=== PATIENT | male | born 1960 ===

== ENCOUNTER 2016-08-12 09:56 | Emergency (ER) | payer OTHER, SELFPAY ==
[2016-08-12 09:56] VITALS: BMI 34.5
[2016-08-12] MEDS ORDERED: Sodium Chloride 0.9% 1,000 ML IV SCH (10:30)
--- NOTE | 2016-08-12 10:38 | ED PDOC ---
HPI: Back Time Seen by Provider: 08/12/16 10:10 Chief Complaint (Nursing): Back Pain Chief Complaint (Provider): Right flank pain History Per: Patient History/Exam Limitations: no limitations Onset/Duration Of Symptoms: Hrs Current Symptoms Are (Timing): Still Present Quality Of Discomfort: "Pain" Severity: Moderate Previous Symptoms: None Additional History Per: Patient Additional Complaint(s): The pt is a 55yo male, presents to the ED for evaluation of right sided flank pain present since last night, radiating to his right groin. Reports the pain is associated with multiple episodes of frequency and nausea. Pt denies chest pain, shortness of breath, dysuria or penile discharge. Additionally denies numbness, weakness, bladder or bowel incontinence. Pt offers no additional medical complaints. Past Medical History Reviewed: Historical Data, Nursing Documentation, Vital Signs Vital Signs: Last Vital Signs Temp Pulse Resp BP 151/93 H 08/12/16 10:03 Pulse Ox 98 08/12/16 10:03 - Medical History PMH: HTN, Hypercholesterolemia Denies: HIV, Chronic Kidney Disease - Surgical History Surgical History: No Surg Hx - Family History Family History: States: Unknown Family Hx - Social History Current smoker - smoking cessation education provided: No Alcohol: None Drugs: Denies - Home Medications Home Medications: Ambulatory Orders Medication Instructions Recorded Aspirin 325 mg PO DAILY #30 tab 10/09/15 Atorvastatin [Lipitor] 40 mg PO DAILY #30 tab 10/09/15 Clopidogrel [Plavix] 75 mg PO DAILY #30 tab 10/09/15 Lisinopril [Zestril] 10 mg PO DAILY #30 tab 10/09/15 Metoprolol Tartrate [Lopressor] 50 mg PO Q12 11/22/15 Ciprofloxacin HCl [Cipro] 500 mg PO BID #10 tablet 08/12/16 Tamsulosin [Flomax] 0.4 mg PO DAILY #20 cap 08/12/16 oxyCODONE/Acetaminophen [Percocet 1 ea PO Q6 PRN #10 tab 08/12/16 5/325 mg Tab] - Allergies Allergies/Adverse Reactions: Allergies Allergy/AdvReac Type Severity Reaction Status Date / Time No Known Allergies Allergy Verified 10/06/15 03:06 Review of Systems ROS Statement: Except As Marked, All Systems Reviewed And Found Negative Constitutional: Negative for: Fever, Chills, Malaise, Weight loss Cardiovascular: Negative for: Chest Pain, Paroxysmal Noc. Dyspnea, Edema Respiratory: Negative for: Cough, Shortness of Breath, SOB with Exertion Gastrointestinal: Positive for: Nausea. Negative for: Vomiting, Abdominal Pain , Diarrhea Genitourinary Male: Positive for: Frequency. Negative for: Dysuria, Incontinence, Penile Discharge Musculoskeletal: Positive for: Back Pain (right flank pain radiating to groin) Neurological: Negative for: Weakness, Numbness Psych: Negative for: Anxiety, Depression Physical Exam - Reviewed Nursing Documentation Reviewed: Yes Vital Signs Reviewed: Yes - Physical Exam Appears: Positive for: Well, Non-toxic, No Acute Distress Head Exam: Positive for: ATRAUMATIC, NORMAL INSPECTION, NORMOCEPHALIC Skin: Positive for: Normal Color, Warm, DRY Eye Exam: Positive for: Normal appearance Neck: Positive for: Normal, Supple Cardiovascular/Chest: Positive for: Regular Rate, Rhythm Respiratory: Positive for: Normal Breath Sounds. Negative for: Respiratory Distress Pulses-Radial (L): 2+ Pulses-Radial (R): 2+ Back: Positive for: R CVA Tenderness. Negative for: Vertebral Tenderness Extremity: Positive for: Normal ROM, Other (pt ambulating normally in ED). Negative for: Deformity Neurologic/Psych: Positive for: Alert, Oriented - Laboratory Results Result Diagrams: 08/12/16 10:35 08/12/16 10:35 - ECG O2 Sat by Pulse Oximetry: 98 (RA) Pulse Ox Interpretation: Normal Medical Decision Making Medical Decision Making: Time: Impression: Renal colic vs. musculoskeletal back pain Plan: -- CT Abdomen from 2016 reviewed, no eivdence of AAA or dissection noted. Renal stones on right side present. -- CT AP -- CMP -- CBC -- Lipase -- Toradol 30 mg IVP -- Morphine 4 mg IVP -- Zofran 4 mg IVP -- IV Fluids -- Reassess Scribe Attestation: Documented by Ariana Mcclain acting as a scribe for Janeth Rivas MD. Provider Attestation: All medical record entries made by the Scribe were at my direction and personally dictated by me. I have reviewed the chart and agree that the record accurately reflects my personal performance of the history, physical exam, medical decision making, and the department course for this patient. I have also personally directed, reviewed, and agree with the discharge instructions and disposition. 11:47AM Patient is afebrile. WBC is mildly elevated with shift. Bun/creatinine WNL. UA shows rare bacteria and hematuria but negative for leukocytes and nitrates. Ucx sent. 12:35 CT shows 5 x 3 mm proximal right ureteral calculus (series 3, image 94) with proximal hydroureteronephrosis. Bibasilar atelectasis. Small hiatal hernia/distal esophageal wall thickening. Fat containing umbilical hernia measures approximately 13 mm in transverse dimension. Small fat containing bilateral inguinal hernias. Called Dr. Gross, urology archivist economic history, and spoke to him about patient. He recommends dc home if tolerating po and pain controlled, with cipro x 4 days and flomax. Will follow patient in his office 2:20PM Dose of rocephin given. Patient tolerating po and pain controlled. Given short course of percocet for breakthrough pain and understands the risk of narcotics for treatment for this acute condition. Risks and alternatives were provided. Disposition - Clinical Impression Clinical Impression: Renal colic, Hydroureteronephrosis - Disposition Referrals: Reed Winston MD [Medical Doctor] - Disposition: Routine/Home Disposition Time: 12:39 Condition: FAIR Additional Instructions: Take cipro and flomax as prescribed. Percocet for severe pain. Follow-up with urology within 2 days. Return to ED immediately with any worsening pain, vomiting, fever, or any worsening symptoms Prescriptions: Ciprofloxacin HCl [Cipro] 500 mg PO BID #10 tablet oxyCODONE/Acetaminophen [Percocet 5/325 mg Tab] 1 ea PO Q6 PRN #10 tab PRN Reason: Pain, Moderate (4-7) Tamsulosin [Flomax] 0.4 mg PO DAILY #20 cap Instructions: Kidney Stones (ED), Renal Colic (ED), How to Strain Your Urine ( ED) Print Language: BENGALI
[2016-08-12 10:47] LABS: BASO # 0.1 K/uL (0.0-0.2); BASO % 0.5 % (0.0-2.0); EOS # 0.1 K/uL (0.0-0.7); EOS % 0.5 % (0.0-4.0); HEMOGLOBIN 14.9 g/dL (12.0-18.0); LYMPH # 1.8 K/uL (1.0-4.3); LYMPH % 14.1 % (20.0-40.0); MEAN CORPUSCULAR HEMOGLOBIN 30.5 pg (27.0-31.0); MEAN CORPUSCULAR HGB CONC 32.8 g/dL (33.0-37.0); MEAN PLATELET VOLUME 9.1 fl (7.2-11.7); MONO # 0.5 K/uL (0.0-0.8); MONO % 4.1 % (0.0-10.0); NEUT # 10.2 K/uL (1.8-7.0); NEUT % 80.8 % (50.0-75.0); RBC 4.87 Mil/uL (4.40-5.90); RED CELL DISTRIBUTION WIDTH 13.1 % (11.5-14.5); WHITE BLOOD COUNT 12.7 K/uL (4.8-10.8)
[2016-08-12 10:57] LABS: ALB/GLOB RATIO 1.6 (1.0-2.1); ALBUMIN 4.5 g/dL (3.5-5.0); ALT/SGPT 77 U/L (21-72); AST/SGOT 37 U/L (17-59); BLOOD UREA NITROGEN 20 mg/dl (9-20); CALCIUM 9.3 mg/dL (8.4-10.2); GFR AFRICAN-AMERICAN > 60; GFR NON-AFRICAN AMERICAN > 60; LIPASE 24 U/L (23-300)
[2016-08-12 11:03] LABS: SQUAMOUS EPITHIAL < 1 /hpf (0-5); URINE BACTERIA RARE (<OCC); URINE BILIRUBIN NEGATIVE (NEGATIVE); URINE BLOOD SMALL (NEGATIVE); URINE CLARITY CLEAR (Clear); URINE COLOR YELLOW (YELLOW); URINE GLUCOSE (UA) NEG (Normal); URINE LEUKOCYTE ESTERASE NEG Leu/uL (Negative); URINE NITRATE NEGATIVE (NEGATIVE); URINE PROTEIN 30 mg/dL (NEGATIVE); URINE UROBILINOGEN 0.2-1.0 mg/dL (0.2-1.0)
--- NOTE | 2016-08-12 12:32 | CT ---
PROCEDURE: CT Abdomen and Pelvis without Oral or IV contrast. HISTORY: R flank pain COMPARISON: Dissection CT performed 10/06/15 TECHNIQUE: Contiguous axial images of the abdomen and pelvis. No oral or IV contrast administered. Coronal and Sagittal reformats generated and reviewed. Radiation dose: Total exam DLP = 1107. 60 mGy-cm. This CT exam was performed using one or more of the following dose reduction techniques: Automated exposure control, adjustment of the mA and/or kV according to patient size, and/or use of iterative reconstruction technique. FINDINGS: There is limited evaluation of the solid organs without the administration of IV contrast. LOWER THORAX: Bibasilar atelectasis. No visible pleural effusion or pneumothorax. Small hiatal hernia/distal esophageal wall thickening. LIVER: Unremarkable unenhanced appearance. GALLBLADDER AND BILE DUCTS: Unremarkable unenhanced appearance. PANCREAS: Unremarkable unenhanced appearance. SPLEEN: Unremarkable unenhanced appearance. ADRENALS: Unremarkable unenhanced appearance. KIDNEYS AND URETERS: 5 x 3 mm proximal right ureteral calculus (series 3, image 94) with proximal hydroureteronephrosis. The left kidney appears unremarkable without hydronephrosis or obstructing calculus evident. BLADDER: The urinary bladder appears unremarkable. REPRODUCTIVE: Unremarkable. APPENDIX: The appendix appears within normal limits of caliber. No secondary signs of acute appendicitis. BOWEL: The stomach is nondistended. Lack of oral contrast limits evaluation for bowel pathology. The bowel loops appear within normal limits of caliber without evidence of intestinal obstruction. PERITONEUM: No significant free fluid. No definite free air. LYMPH NODES: No bulky lymphadenopathy identified. VASCULATURE: Atherosclerotic calcifications. No aortic aneurysm. BONES: Degenerative changes of the spine. Vacuum disc phenomenon at L5-S1. OTHER FINDINGS: Fat containing umbilical hernia measures approximately 13 mm in transverse dimension. Small fat containing bilateral inguinal hernias. IMPRESSION: 5 x 3 mm proximal right ureteral calculus (series 3, image 94) with proximal hydroureteronephrosis. Bibasilar atelectasis. Small hiatal hernia/distal esophageal wall thickening. Fat containing umbilical hernia measures approximately 13 mm in transverse dimension. Small fat containing bilateral inguinal hernias.
[2016-08-12] MEDS ORDERED: cefTRIAXone (Rocephin) 1 gm Inj ONE (12:46)
[2016-08-12] MEDS ORDERED: Oxycodone/Acetaminophen 5/325 mg Tab PO STA (13:18)
[2016-08-12] MEDS ORDERED: Oxycodone/Acetaminophen 5/325 mg Tab ONE (13:24)
[2016-08-12 14:33] VITALS: BP 123/76; PULSE 78; RESP 18; TEMP 98.1; O2SAT 99
== END 2016-08-12 14:33 | disposition home or self-care (01) ==
LOC: H.ER 09:56
DX: N13.2 Hydronephrosis with renal and ureteral calculous obstruction (principal); R11.0 Nausea; E78.00 Pure hypercholesterolemia, unspecified; I10 Essential (primary) hypertension; Z79.82 Long term (current) use of aspirin

== ENCOUNTER 2016-08-13 22:50 | Emergency (ER) | payer SELFPAY ==
[2016-08-13 22:51] VITALS: BMI 34.5
[2016-08-13 23:04] VITALS: BP 144/70; PULSE 94; RESP 18; TEMP 100.6; O2SAT 100
[2016-08-13] MEDS ORDERED: Sodium Chloride 0.9% 1,000 ML IV STA (23:10)
--- NOTE | 2016-08-13 23:23 | ED PDOC ---
HPI: Male Pain Time Seen by Provider: 08/13/16 23:08 Chief Complaint (Nursing): Male Genitourinary History Per: Patient (returns to the ER because of persistent right flank pain since yesterday when his ER workup revealed a 5x3 mm right sided ureteral stone with hydronephrosis. Patient was discharged with NSAIDs, Flomax and antibiotics. He returns because he has persistent pain that was not relieved by the meds given on discharge.) History/Exam Limitations: no limitations Past Medical History Reviewed: Historical Data, Nursing Documentation, Vital Signs Vital Signs: Last Vital Signs Temp 100.6 F H 08/13/16 23:01 Pulse 94 H 08/13/16 23:01 Resp 18 08/13/16 23:01 BP 144/70 08/13/16 23:01 Pulse Ox 100 08/13/16 23:01 - Medical History PMH: HTN, Hypercholesterolemia Denies: HIV, Chronic Kidney Disease - Family History Family History: States: Unknown Family Hx - Home Medications Home Medications: Ambulatory Orders Medication Instructions Recorded Aspirin 325 mg PO DAILY #30 tab 10/09/15 Atorvastatin [Lipitor] 40 mg PO DAILY #30 tab 10/09/15 Clopidogrel [Plavix] 75 mg PO DAILY #30 tab 10/09/15 Lisinopril [Zestril] 10 mg PO DAILY #30 tab 10/09/15 Metoprolol Tartrate [Lopressor] 50 mg PO Q12 11/22/15 Ciprofloxacin HCl [Cipro] 500 mg PO BID #10 tablet 08/12/16 Tamsulosin [Flomax] 0.4 mg PO DAILY #20 cap 08/12/16 oxyCODONE/Acetaminophen [Percocet 1 ea PO Q6 PRN #10 tab 08/12/16 5/325 mg Tab] - Allergies Allergies/Adverse Reactions: Allergies Allergy/AdvReac Type Severity Reaction Status Date / Time No Known Allergies Allergy Verified 10/06/15 03:06 Review of Systems ROS Statement: Except As Marked, All Systems Reviewed And Found Negative Constitutional: Negative for: Chills Gastrointestinal: Positive for: Abdominal Pain (right flank). Negative for: Nausea, Vomiting Physical Exam - Reviewed Nursing Documentation Reviewed: Yes Vital Signs Reviewed: Yes - Physical Exam Appears: Positive for: Well, Non-toxic, No Acute Distress, Uncomfortable Head Exam: Positive for: ATRAUMATIC, NORMAL INSPECTION, NORMOCEPHALIC Skin: Positive for: Normal Color, Warm, DRY Eye Exam: Positive for: Normal appearance Neck: Positive for: Normal Cardiovascular/Chest: Positive for: Regular Rate, Rhythm Respiratory: Positive for: CNT, Normal Breath Sounds Gastrointestinal/Abdominal: Positive for: Normal Exam, Bowel Sounds, Soft Back: Positive for: Normal Inspection, R CVA Tenderness Extremity: Positive for: Normal ROM Neurologic/Psych: Positive for: Alert, Oriented - ECG O2 Sat by Pulse Oximetry: 100 Disposition - Clinical Impression Clinical Impression: Renal colic - Patient ED Disposition Is Patient to be Admitted: Transfer of Care - Disposition Disposition: Transfer of Care Disposition Time: 23:24 Condition: GUARDED Patient Signed Over To: Cyrus Crowell Present On Arrival: None
[2016-08-13 23:44] LABS: BASO # 0.1 K/uL (0.0-0.2); BASO % 0.8 % (0.0-2.0); EOS # 0.1 K/uL (0.0-0.7); EOS % 0.6 % (0.0-4.0); HEMOGLOBIN 13.4 g/dL (12.0-18.0); LYMPH # 1.8 K/uL (1.0-4.3); LYMPH % 16.8 % (20.0-40.0); MEAN CELL VOLUME 92.9 fl (80.0-94.0); MEAN CORPUSCULAR HEMOGLOBIN 30.9 pg (27.0-31.0); MEAN CORPUSCULAR HGB CONC 33.3 g/dL (33.0-37.0); MEAN PLATELET VOLUME 8.6 fl (7.2-11.7); MONO % 9.1 % (0.0-10.0); NEUT # 7.7 K/uL (1.8-7.0); NEUT % 72.7 % (50.0-75.0); RBC 4.34 Mil/uL (4.40-5.90); WHITE BLOOD COUNT 10.6 K/uL (4.8-10.8)
--- NOTE | 2016-08-13 23:52 | ED PDOC ---
- Laboratory Results Result Diagrams: 08/13/16 23:40 08/13/16 23:40 - ECG O2 Sat by Pulse Oximetry: 100 Medical Decision Making Medical Decision Making: Patient s/o from Dr. Kramer at 0000 pending labs and reeval. 0209: Labs reviewed, no clinically significant abnormalities. Patient feels better and is stable for d/c. Dx: renal colic stable Scribe Attestation: Documented by Maral Mireles acting as a scribe for Cyrus Crowell MD. Provider Scribe Attestation: All medical record entries made by the Scribe were at my direction and personally dictated by me. I have reviewed the chart and agree that the record accurately reflects my personal performance of the history, physical exam, medical decision making, and the department course for this patient. I have also personally directed, reviewed, and agree with the discharge instructions and disposition. Disposition - Clinical Impression Clinical Impression: Renal colic - POA Present On Arrival: None - Disposition Referrals: Reed Winston MD [Medical Doctor] - Stacey Garcia MD [Primary Care Provider] - Disposition: Routine/Home Disposition Time: 02:09 Condition: STABLE Additional Instructions: Please continue your current medications as prescribed Instructions: Ureteral Stones (ED) Print Language: SLOVENIAN
[2016-08-13 23:55] LABS: CALCIUM 8.8 mg/dL (8.4-10.2)
== END 2016-08-14 02:30 | disposition home or self-care (01) ==
LOC: H.ER 22:50
DX: N23 Unspecified renal colic (principal); I10 Essential (primary) hypertension

== ENCOUNTER 2017-01-11 21:42 | Emergency (ER) | payer SELFPAY ==
[2017-01-11 21:43] VITALS: BMI 34.5
[2017-01-11 21:47] VITALS: RESP 16; O2SAT 98
--- NOTE | 2017-01-11 22:16 | ED PDOC ---
HPI: Hypertension/Hypotension Time Seen by Provider: 01/11/17 21:54 Chief Complaint (Nursing): High Blood Pressure History Per: Patient History/Exam Limitations: no limitations Additional Complaint(s): 56 yo male patient with PMH of HTN, NE, and Hyperlipidemia comes to ED c/o headache and high blood pressure, he measure his bp in a local pharmacy showing elevated BP. Patient states having being off of his BP medicines for 2 days, states has refill on pharmacy but for work reasons was unable to pickup them. Denies chest pain, palpitations, sob, edema, nausea, vomiting, no recent vomiting, blurred vision. PMD: Dr Garcia Cardiology: Dr Osuna Past Medical History Vital Signs: Last Vital Signs Temp 98.0 F 01/11/17 21:46 Pulse 100 H 01/11/17 21:46 Resp 16 01/11/17 21:46 BP 178/96 H 01/11/17 21:48 Pulse Ox 98 01/11/17 21:46 - Medical History PMH: HTN, Hypercholesterolemia Denies: HIV, Chronic Kidney Disease - Family History Family History: States: Unknown Family Hx - Home Medications Home Medications: Ambulatory Orders Medication Instructions Recorded Aspirin 325 mg PO DAILY #30 tab 10/09/15 Atorvastatin [Lipitor] 40 mg PO DAILY #30 tab 10/09/15 Clopidogrel [Plavix] 75 mg PO DAILY #30 tab 10/09/15 Lisinopril [Zestril] 10 mg PO DAILY #30 tab 10/09/15 Metoprolol Tartrate [Lopressor] 50 mg PO Q12 11/22/15 Ciprofloxacin HCl [Cipro] 500 mg PO BID #10 tablet 08/12/16 Tamsulosin [Flomax] 0.4 mg PO DAILY #20 cap 08/12/16 oxyCODONE/Acetaminophen [Percocet 1 ea PO Q6 PRN #10 tab 08/12/16 5/325 mg Tab] - Allergies Allergies/Adverse Reactions: Allergies Allergy/AdvReac Type Severity Reaction Status Date / Time No Known Allergies Allergy Verified 01/11/17 21:45 Review of Systems ROS Statement: Except As Marked, All Systems Reviewed And Found Negative Physical Exam - Reviewed Nursing Documentation Reviewed: Yes Vital Signs Reviewed: Yes - Physical Exam Appears: Positive for: No Acute Distress Head Exam: Positive for: NORMAL INSPECTION Skin: Positive for: Normal Color, Warm, Dry Eye Exam: Positive for: EOMI, PERRL. Negative for: Nystagmus Neck: Positive for: Supple Cardiovascular/Chest: Positive for: Regular Rate, Rhythm, Tachycardia. Negative for: Murmur Respiratory: Positive for: Normal Breath Sounds. Negative for: Rales, Rhonchi, Wheezing Pulses-Dorsalis Pedis (L): 2+ Pulses-Dorsalis Pedis (R): 2+ Gastrointestinal/Abdominal: Positive for: Bowel Sounds, Soft. Negative for: Tenderness, Distended Extremity: Negative for: Pedal Edema, Calf Tenderness Neurologic/Psych: Positive for: Alert, paid search manager II-XII, Oriented - ECG O2 Sat by Pulse Oximetry: 98 - Progress ED Course And Treament: Impression: Hypertensive urgency Plan: lisinopril 10 mg PO once metoprolol 50 mg PO once EKG Reevaluation. Reevaluation 2253 BP 165/74 Patient still having headache, less than arrival. Discharged home. Disposition - Clinical Impression Clinical Impression: HTN (hypertension) - Patient ED Disposition Is Patient to be Admitted: No - Disposition Referrals: Stacey Garcia MD [Resident] - Disposition: Routine/Home Disposition Time: 23:19 Condition: GOOD Instructions: Hypertension (DC) Forms: [facility] (Latvian)
[2017-01-11 23:04] VITALS: BP 149/104; PULSE 82; TEMP 98.9
== END 2017-01-11 23:22 | disposition home or self-care (01) ==
LOC: H.ER 21:42
DX: I10 Essential (primary) hypertension (principal); E78.00 Pure hypercholesterolemia, unspecified; Z79.82 Long term (current) use of aspirin

== ENCOUNTER 2017-08-04 13:50 | Emergency (ER) | payer SELFPAY ==
[2017-08-04 13:50] VITALS: BMI 34.5
[2017-08-04 14:13] VITALS: TEMP 98.3
[2017-08-04] MEDS ORDERED: Sodium Chloride 0.9% 1,000 ML IV STA (14:58)
--- NOTE | 2017-08-04 15:07 | ED PDOC ---
HPI: Abdomen Time Seen by Provider: 08/04/17 14:25 Chief Complaint (Nursing): Male Genitourinary Chief Complaint (Provider): Right flank pain History Per: Patient History/Exam Limitations: no limitations Onset/Duration Of Symptoms: Days Current Symptoms Are (Timing): Still Present Quality Of Discomfort: "Pain" Associated Symptoms: denies: Fever, Vomiting Additional Complaint(s): 56 year old male with a history of kidney stones presents to the ED for evaluation of right flank pain onset this morning. Reports the pain radiates from his right flank to his right groin. Also states of CVA pain. Denies vomiting of fever. PMD: Stacey Garcia Past Medical History Reviewed: Historical Data, Nursing Documentation, Vital Signs Vital Signs: Last Vital Signs Temp 98.3 F 08/04/17 14:08 Pulse 69 08/04/17 14:08 Resp 16 08/04/17 14:08 BP 124/77 08/04/17 14:08 Pulse Ox 99 08/04/17 18:04 - Medical History PMH: HTN, Hypercholesterolemia Denies: HIV, Chronic Kidney Disease Other PMH: coronary artery disease - Family History Family History: States: Unknown Family Hx - Home Medications Home Medications: Ambulatory Orders Medication Instructions Recorded Aspirin 325 mg PO DAILY #30 tab 10/09/15 Atorvastatin [Lipitor] 40 mg PO DAILY #30 tab 10/09/15 Clopidogrel [Plavix] 75 mg PO DAILY #30 tab 10/09/15 Lisinopril [Zestril] 10 mg PO DAILY #30 tab 10/09/15 Metoprolol Tartrate [Lopressor] 50 mg PO Q12 11/22/15 oxyCODONE/Acetaminophen [Percocet 1 ea PO Q6 PRN #10 tab 08/12/16 5/325 mg Tab] Ciprofloxacin HCl [Cipro] 500 mg PO BID #10 tablet 08/04/17 Tamsulosin [Flomax] 0.4 mg PO DAILY #20 cap 08/04/17 - Allergies Allergies/Adverse Reactions: Allergies Allergy/AdvReac Type Severity Reaction Status Date / Time No Known Allergies Allergy Verified 08/04/17 14:08 Review of Systems ROS Statement: Except As Marked, All Systems Reviewed And Found Negative Constitutional: Negative for: Fever Gastrointestinal: Positive for: Abdominal Pain (right-side). Negative for: Vomiting Musculoskeletal: Positive for: Back Pain (right-side) Physical Exam - Reviewed Nursing Documentation Reviewed: Yes Vital Signs Reviewed: Yes - Physical Exam Appears: Positive for: Well, Non-toxic, No Acute Distress Head Exam: Positive for: ATRAUMATIC, NORMAL INSPECTION, NORMOCEPHALIC Skin: Positive for: Normal Color, Warm, Dry Eye Exam: Positive for: EOMI, Normal appearance, PERRL ENT: Positive for: Normal ENT Inspection Neck: Positive for: Normal, Painless ROM, Supple. Negative for: Decreased ROM Cardiovascular/Chest: Positive for: Regular Rate, Rhythm. Negative for: Murmur Respiratory: Positive for: Normal Breath Sounds. Negative for: Decreased Breath Sounds, Accessory Muscle Use, Respiratory Distress Gastrointestinal/Abdominal: Positive for: Tenderness (right lower quadrant). Negative for: Guarding, Rebound Back: Positive for: Normal Inspection. Negative for: L CVA Tenderness, R CVA Tenderness Extremity: Positive for: Normal ROM. Negative for: Tenderness, Pedal Edema, Deformity Neurologic/Psych: Positive for: Alert, Oriented (x3). Negative for: Motor/ Sensory Deficits - Laboratory Results Result Diagrams: 08/04/17 15:10 08/04/17 15:10 - ECG O2 Sat by Pulse Oximetry: 99 (RA) Pulse Ox Interpretation: Normal - Progress Re-evaluation Time: 17:50 Condition: Re-examined, Improved Medical Decision Making Medical Decision Making: Time: 1457 Initial Impression: right flank pain Differential Diagnosis includes but is not limited to: renal colic, nephritis, UTI Initial Plan: --ABD & Pelvis w/o PO or IV CT --BMP --ED Urine Dipstick --CBC w/ Differential --Normal Saline 1000mls/hr --Toradol 30mg --Urinalysis --Reevaluation Time: 1635 PROCEDURE: CT Abdomen and Pelvis without intravenous contrast HISTORY: right flank pain. History of nephrolithiasis COMPARISON: 04/14/2016 CT abdomen and pelvis. Summary of findings on the comparison examination: 5 x 3 mm proximal right ureteral calculus with proximal hydroureteronephrosis TECHNIQUE: Unenhanced study. Neither oral nor intravenous contrast administered. Radiation dose: Total exam DLP = 998.91 mGy-cm. This CT exam was performed using one or more of the following dose reduction techniques: Automated exposure control, adjustment of the mA and/or kV according to patient size, and/or use of iterative reconstruction technique. FINDINGS: LOWER THORAX: Chronic findings at the lung bases and right middle lobe. These are unchanged LIVER: Unremarkable. No gross lesion or ductal dilatation. GALLBLADDER AND BILE DUCTS: Unremarkable. PANCREAS: Unremarkable. No gross lesion or ductal dilatation. SPLEEN: Unremarkable. ADRENALS: Unremarkable. No mass. KIDNEYS AND URETERS: Tiny upper tract calculi. Mild fullness right collecting system and right ureter. This appears be secondary to a bladder calculus just to the left of the midline measuring 6 x 7 mm. VASCULATURE: Unremarkable. No aortic aneurysm. BOWEL: Unremarkable. No obstruction. No gross mural thickening. APPENDIX: Unremarkable. Normal appendix. PERITONEUM: Unremarkable. No free fluid. No free air. LYMPH NODES: Unremarkable. No enlarged lymph nodes. BLADDER: Subcentimeter bladder calculus, otherwise unremarkable. No bladder wall abnormalities detected. REPRODUCTIVE: Unremarkable. BONES: No acute fracture. OTHER FINDINGS: None. IMPRESSION: Mild right hydronephrosis, hydroureter. 6 x 7 mm calculus in the urinary bladder. Scribe Attestation: Documented by Sean Chang, acting as a scribe for Duc Mclain MD Provider Scribe Attestation: All medical record entries made by the Scribe were at my direction and personally dictated by me. I have reviewed the chart and agree that the record accurately reflects my personal performance of the history, physical exam, medical decision making, and the department course for this patient. I have also personally directed, reviewed, and agree with the discharge instructions and disposition. Disposition - Clinical Impression Clinical Impression: Renal colic, Hydroureteronephrosis, Bladder stone - Patient ED Disposition Is Patient to be Admitted: No Doctor Will See Patient In The: Office Counseled Patient/Family Regarding: Studies Performed, Diagnosis, Need For Followup - Disposition Referrals: Jonnie Loyola MD [Medical Doctor] - Disposition: Routine/Home Disposition Time: 18:03 Condition: GOOD Additional Instructions: Follow up with your PCP in 2-3 days. Prescriptions: Ciprofloxacin HCl [Cipro] 500 mg PO BID #10 tablet Tamsulosin [Flomax] 0.4 mg PO DAILY #20 cap Instructions: Renal Colic Print Language: NIGERIEN
[2017-08-04 15:16] LABS: BASO # 0.1 K/uL (0.0-0.2); BASO % 0.8 % (0.0-2.0); EOS # 0.2 K/uL (0.0-0.7); EOS % 1.7 % (0.0-4.0); HEMOGLOBIN 14.7 g/dL (12.0-18.0); LYMPH # 2.3 K/uL (1.0-4.3); LYMPH % 26.3 % (20.0-40.0); MEAN CELL VOLUME 94.1 fl (80.0-94.0); MEAN CORPUSCULAR HEMOGLOBIN 30.8 pg (27.0-31.0); MEAN CORPUSCULAR HGB CONC 32.7 g/dL (33.0-37.0); MEAN PLATELET VOLUME 8.6 fl (7.2-11.7); MONO # 0.5 K/uL (0.0-0.8); MONO % 6.1 % (0.0-10.0); NEUT # 5.7 K/uL (1.8-7.0); NEUT % 65.1 % (50.0-75.0); NRBC % 0.1 % (0.0-0.0); RBC 4.76 Mil/uL (4.40-5.90); RED CELL DISTRIBUTION WIDTH 13.4 % (11.5-14.5); WHITE BLOOD COUNT 8.8 K/uL (4.8-10.8)
[2017-08-04 15:38] LABS: BLOOD UREA NITROGEN 25 mg/dl (9-20); CALCIUM 9.6 mg/dL (8.4-10.2); GFR AFRICAN-AMERICAN > 60; GFR NON-AFRICAN AMERICAN > 60
--- NOTE | 2017-08-04 16:37 | CT ---
PROCEDURE: CT Abdomen and Pelvis without intravenous contrast HISTORY: right flank pain. History of nephrolithiasis COMPARISON: 04/14/2016 CT abdomen and pelvis. Summary of findings on the comparison examination: 5 x 3 mm proximal right ureteral calculus with proximal hydroureteronephrosis TECHNIQUE: Unenhanced study. Neither oral nor intravenous contrast administered. Radiation dose: Total exam DLP = 998.91 mGy-cm. This CT exam was performed using one or more of the following dose reduction techniques: Automated exposure control, adjustment of the mA and/or kV according to patient size, and/or use of iterative reconstruction technique. FINDINGS: LOWER THORAX: Chronic findings at the lung bases and right middle lobe. These are unchanged LIVER: Unremarkable. No gross lesion or ductal dilatation. GALLBLADDER AND BILE DUCTS: Unremarkable. PANCREAS: Unremarkable. No gross lesion or ductal dilatation. SPLEEN: Unremarkable. ADRENALS: Unremarkable. No mass. KIDNEYS AND URETERS: Tiny upper tract calculi. Mild fullness right collecting system and right ureter. This appears be secondary to a bladder calculus just to the left of the midline measuring 6 x 7 mm. VASCULATURE: Unremarkable. No aortic aneurysm. BOWEL: Unremarkable. No obstruction. No gross mural thickening. APPENDIX: Unremarkable. Normal appendix. PERITONEUM: Unremarkable. No free fluid. No free air. LYMPH NODES: Unremarkable. No enlarged lymph nodes. BLADDER: Subcentimeter bladder calculus, otherwise unremarkable. No bladder wall abnormalities detected. REPRODUCTIVE: Unremarkable. BONES: No acute fracture. OTHER FINDINGS: None. IMPRESSION: Mild right hydronephrosis, hydroureter. 6 x 7 mm calculus in the urinary bladder.
[2017-08-04 18:18] VITALS: BP 132/69; PULSE 74; RESP 18; O2SAT 100
== END 2017-08-04 18:15 | disposition home or self-care (01) ==
LOC: H.ER 13:50
DX: N21.0 Calculus in bladder (principal); N23 Unspecified renal colic; N13.30 Unspecified hydronephrosis; E78.00 Pure hypercholesterolemia, unspecified; I10 Essential (primary) hypertension; I25.10 Atherosclerotic heart disease of native coronary artery without angina pectoris; Z79.82 Long term (current) use of aspirin
CPT/HCPCS: 74176; 80048; 85025; 96361; 96374; 99285; J1885; J7030

== ENCOUNTER 2018-03-18 19:06 | Inpatient (IN) | payer OTHER ==
[2018-03-18 19:06] VITALS: BMI 34.5
--- NOTE | 2018-03-18 20:10 | ED PDOC ---
Lower Extremity Pain/Injury Time Seen by Provider: 03/18/18 19:43 Chief Complaint (Nursing): Lower Extremity Problem/Injury Chief Complaint (Provider): Left leg swelling History Per: Patient History/Exam Limitations: no limitations Onset/Duration Of Symptoms: Other (x1 month) Current Symptoms Are (Timing): Still Present Additional Complaint(s): 57 year old male, with a past medical history of HTN, CAD, and Diabetes, presents to the ED complaining of left lower leg swelling which has been intermittent for the past month. Patient reports discomfort but no pain in the leg. He states he had gone to the clinic today where he had a Doppler US showing blood clots and DVT in the leg. Patient was told to immediately report to the ED for evaluation. He denies shortness of breath, chest pain, or abdominal pain. PMD: Clinic Past Medical History Reviewed: Historical Data, Nursing Documentation, Vital Signs Vital Signs: Last Vital Signs Temp 98.3 F 03/18/18 19:19 Pulse 74 03/18/18 19:19 Resp 16 03/18/18 19:19 BP 192/97 H 03/18/18 19:19 Pulse Ox 97 03/18/18 19:19 - Medical History PMH: CAD, Diabetes, HTN, Hypercholesterolemia Denies: HIV, Chronic Kidney Disease - Surgical History Surgical History: Coronary Stent (x2) - Family History Family History: States: Unknown Family Hx - Home Medications Home Medications: Ambulatory Orders Medication Instructions Recorded Aspirin 325 mg PO DAILY #30 tab 10/09/15 Atorvastatin [Lipitor] 40 mg PO DAILY #30 tab 10/09/15 Clopidogrel [Plavix] 75 mg PO DAILY #30 tab 10/09/15 Lisinopril [Zestril] 10 mg PO DAILY #30 tab 10/09/15 Metoprolol Tartrate [Lopressor] 50 mg PO Q12 11/22/15 oxyCODONE/Acetaminophen [Percocet 1 ea PO Q6 PRN #10 tab 08/12/16 5/325 mg Tab] Ciprofloxacin HCl [Cipro] 500 mg PO BID #10 tablet 08/04/17 Tamsulosin [Flomax] 0.4 mg PO DAILY #20 cap 08/04/17 - Allergies Allergies/Adverse Reactions: Allergies Allergy/AdvReac Type Severity Reaction Status Date / Time No Known Allergies Allergy Verified 03/18/18 19:24 Review of Systems ROS Statement: Except As Marked, All Systems Reviewed And Found Negative Cardiovascular: Negative for: Chest Pain Respiratory: Negative for: Shortness of Breath Gastrointestinal: Negative for: Abdominal Pain Musculoskeletal: Positive for: Other (Left lower swelling) Physical Exam - Reviewed Nursing Documentation Reviewed: Yes Vital Signs Reviewed: Yes - Physical Exam Appears: Positive for: Non-toxic, No Acute Distress Head Exam: Positive for: ATRAUMATIC, NORMOCEPHALIC Skin: Positive for: Normal Color, Warm, Dry Eye Exam: Positive for: Normal appearance ENT: Positive for: Normal ENT Inspection Neck: Positive for: Normal, Painless ROM Cardiovascular/Chest: Positive for: Regular Rate, Rhythm Respiratory: Positive for: Normal Breath Sounds. Negative for: Wheezing, Respiratory Distress Pulses-Dorsalis Pedis (L): 2+ Pulses-Dorsalis Pedis (R): 2+ Gastrointestinal/Abdominal: Positive for: Normal Exam, Soft. Negative for: Tenderness Extremity: Positive for: Normal ROM, Swelling (exam consistent with left lower leg swelling), Other (Left leg: soft, no ecchymosis or redness). Negative for: Calf Tenderness Neurologic/Psych: Positive for: Alert, Oriented. Negative for: Motor/Sensory Deficits - Laboratory Results Result Diagrams: 03/18/18 20:05 03/18/18 20:05 - ECG O2 Sat by Pulse Oximetry: 97 Medical Decision Making Medical Decision Making: Initial Impression: Left leg swelling Differential includes DVT and CHF Initial Plan: --CT angio chest --BMP --BNP --Troponin --CBC --Prothrombin time --PTT Previous chart from clinic reviewed showing patient's ultrasound was negative for DVT. Patient had positive D Dimer. 15:34 at Clinic Lower extremity US FINDINGS: 2-D, color and duplex Doppler analysis of the lower extremity venous circulation using routine protocol from the femoral veins through the popliteal veins. Venous compressibility: Normal. Flow and augmentation patterns: Normal. Visualized veins upper third of calf: Normal. Morales cyst: None. IMPRESSION: No sonographic or Doppler evidence for DVT in left lower extremity. 21:51 CT Angio Chest FINDINGS: PULMONARY ARTERIES There is acute pulmonary embolism involving the right lower lobe pulmonary artery as well as multiple segmental right lower lobe arteries. There is also a small pulmonary embolism and a left lower lobe segmental artery. Suggestion of small pulmonary embolism within the left upper lobe segmental artery. Small l pulmonary emboli within the lingular pulmonary arteries as well. AORTA There is no evidence for aneurysm or dissection of the thoracic aorta. LUNGS There are some vague groundglass opacities scattered throughout both lungs, Most notably in the lingula. These are nonspecific and could represent atelectasis or early infectious process. Please correlate clinically. Minimal paraseptal emphysema at the lung apices. PLEURAL SPACES No significant pleural effusion. No visible pneumothorax. HEART There are prominent coronary artery calcifications. The heart is not enlarged. No significant pericardial effusion. LYMPH NODES No lymphadenopathy is evident. BONES There are mild to moderate degenerative spine changes present. UPPER ABDOMEN Images of the upper abdomen are unremarkable. IMPRESSION: 1. There is acute pulmonary embolism involving the right lower lobe pulmonary artery as well as multiple segmental right lower lobe arteries. There is also a small pulmonary embolism and a left lower lobe segmental artery. Suggestion of small pulmonary embolism within the left upper lobe segmental artery. Small l p ulmonary emboli within the lingular pulmonary arteries as well. 2. There are some vague groundglass opacities scattered throughout both lungs, Most notably in the lingula. These are nonspecific and could represent atelectasis or early infectious process. Please correlate clinically. 3. These findings are being telephoned to Dr MCLAIN, at the time of this report. 21:59 CT chest positive for PE. Patient to be admitted to the hospitalist to Telemetry with diagnosis of PE. 22:09 Patient to be admitted to hospitalist service under Dr. Oscar. Scribe Attestation: Documented by Juan Antonio Son acting as a scribe for Duc Mclain MD. Provider Scribe Attestation: All medical record entries made by the Scribe were at my direction and personally dictated by me. I have reviewed the chart and agree that the record accurately reflects my personal performance of the history, physical exam, medic al decision making, and the department course for this patient. I have also personally directed, reviewed, and agree with the discharge instructions and disposition. Disposition - Clinical Impression Clinical Impression: Pulmonary embolism - Patient ED Disposition Is Patient to be Admitted: Yes Discussed With Dr.: Yenny Oscar Doctor Will See Patient In The: ED Counseled Patient/Family Regarding: Studies Performed, Diagnosis - Disposition Disposition Time: 22:00 Condition: FAIR - Pt Status Changed To: Hospital Disposition Of: Inpatient - Admit Certification Admit to Inpatient:: After my assessment, the patient will require hospitalization for at least two midnights. This is because of the severity of symptoms shown, intensity of services needed, and/or the medical risk in this patient being treated as an outpatient. - POA Present On Arrival: Deep Vein Thrombosis / PE
[2018-03-18] MEDS ORDERED: Iodixanol 320 MG/ML 100 ML BOTTLE IV ONE (20:21)
[2018-03-18] MEDS ORDERED: Sodium Chloride 0.9% 50 ML IV ONE (20:22)
[2018-03-18 20:23] LABS: BASO # 0.1 K/uL (0.0-0.2); BASO % 0.9 % (0.0-2.0); EOS # 0.2 K/uL (0.0-0.7); EOS % 2.5 % (0.0-4.0); HEMOGLOBIN 14.6 g/dL (12.0-18.0); LYMPH # 3.5 K/uL (1.0-4.3); LYMPH % 40.9 % (20.0-40.0); MEAN CELL VOLUME 93.5 fl (80.0-94.0); MEAN CORPUSCULAR HEMOGLOBIN 30.8 pg (27.0-31.0); MEAN PLATELET VOLUME 8.5 fl (7.2-11.7); MONO # 0.7 K/uL (0.0-0.8); MONO % 8.2 % (0.0-10.0); NEUT % 47.5 % (50.0-75.0); NRBC % 0.1 % (0.0-0.0); RBC 4.74 Mil/uL (4.40-5.90); RED CELL DISTRIBUTION WIDTH 12.9 % (11.5-14.5); WHITE BLOOD COUNT 8.5 K/uL (4.8-10.8)
[2018-03-18 20:27] LABS: PROTHROMBIN TIME 11.4 Seconds (9.8-13.1)
[2018-03-18 20:33] LABS: BLOOD UREA NITROGEN 17 mg/dl (9-20); CALCIUM 9.4 mg/dL (8.4-10.2); GFR NON-AFRICAN AMERICAN > 60
[2018-03-18 20:45] LABS: B-TYPE NATRIURETIC PEPTIDE 59.9 pg/ml (0-900)
[2018-03-18] MEDS ORDERED: Enoxaparin 100 mg Syringe SC STA (22:07)
--- NOTE | 2018-03-18 23:19 | CP.PCM.HP ---
<Anand Oliveira - Last Filed: 03/19/18 01:11> History of Present Illness - History of Present Illness History of Present Illness: 57 y/o M with a PMHx of CAD, IN, HTN, HLD, current smoker and pre-diabetes presented for evaluation of left lower leg swelling. Pt came to ED as per PMD request after elevated elevated D-Dimer, negative US dupplex of LLE, and concern for pulmonary embolism. Pt reports L lower leg swelling was noticed 1.5 months ago, progressively became mildly tender to palpation but no painful, and is not associated with redness. Pt denies trauma, recent airplane flight, long drive. Pt worked in construction until 2 months ago. Pt usually stays at home. Pt denies fever, chills, chest pain, SOB, nausea, vomiting, abdominal pain, rash, recent trauma, paresthesia or previous Hx of DVT or PE. PCP: Karol Pierce at [facility] NKDA Meds: Aspirin 81mg PO daily, Metoprolol 50mg PO BID, Lisinopril 10mg PO daily, Atorvastatin 40mg PO daily, Metformin 500mg PO BID. -PMHx: NSTEMI-S/P cath w/ 2 stent placement on 09/2015, HTN, HLD, Pre-diabetes. -PSHx: denied -FHx: Father had a CVA at age 50, at age 87. Mother and brother have CAD. -SHx: Pt smokes cigarettes, 1ppd for >30 years. No alcohol and no rec drugs. At ED: --Vital signs: WNL except for BP 147/76 --CTA Lungs: Acute pulmonary embolism in right lower lobe pulmonary artery and multiple segmental right lower lobe arteries. There is also a small pulmonary embolism in left lower lobe segmental artery. Suggestion of small pulmonary embolism within the left upper lobe segmental artery. Small pulmonary emboli within the lingular pulmonary arteries as well. --CBC, CMP, coag profile were unremarkable. --Lovenox 100mg SC administered Present on Admission - Present on Admission Any Indicators Present on Admission: No History of DVT/PE: No History of Uncontrolled Diabetes: No Urinary Catheter: No Review of Systems - Constitutional Constitutional: absent: Chills, Fever - EENT Nose/Mouth/Throat: absent: Nasal Congestion, Nasal Obstruction, Mouth Pain, Sore Throat, Facial Pain, Neck Pain, Neck Mass - Cardiovascular Cardiovascular: absent: Chest Pain, Claudication, Dyspnea - Respiratory Respiratory: absent: Cough, Dyspnea, Chest Congestion - Gastrointestinal Gastrointestinal: absent: Abdominal Pain, Nausea, Temesmus, Vomiting - Musculoskeletal Musculoskeletal: absent: Stiffness, Tingling Additional comments: Positive for left lower leg swelling. - Neurological Neurological: absent: Dizziness, Numbness, Headaches, Paresthesias, Weakness Past Patient History - Past Medical History & Family History Past Medical History?: Yes - Past Social History Smoking Status: Heavy Smoker > 10 Cigarettes Daily - CARDIAC Hx Hypercholesterolemia: Yes Hx Hypertension: Yes - PULMONARY Hx Respiratory Disorders: No - NEUROLOGICAL Hx Neurological Disorder: No - HEENT Hx HEENT Problems: No - RENAL Hx Chronic Kidney Disease: No - ENDOCRINE/METABOLIC Hx Endocrine Disorders: No - HEMATOLOGICAL/ONCOLOGICAL Hx Human Immunodeficiency Virus (HIV): No - INTEGUMENTARY Hx Dermatological Problems: No - MUSCULOSKELETAL/RHEUMATOLOGICAL Hx Musculoskeletal Disorders: No Hx Falls: No - GASTROINTESTINAL Hx Gastrointestinal Disorders: No - GENITOURINARY/GYNECOLOGICAL Hx Genitourinary Disorders: No - PSYCHIATRIC Hx Psychophysiologic Disorder: No Hx Substance Use: No - SURGICAL HISTORY Hx Coronary Stent: Yes (x2) - ANESTHESIA Hx Anesthesia: Yes Hx Anesthesia Reactions: No Meds Allergies/Adverse Reactions: Allergies Allergy/AdvReac Type Severity Reaction Status Date / Time No Known Allergies Allergy Verified 03/18/18 19:24 Physical Exam - Constitutional Appears: Well, No Acute Distress - Head Exam Head Exam: ATRAUMATIC, NORMAL INSPECTION - Eye Exam Eye Exam: EOMI, Normal appearance - ENT Exam ENT Exam: Mucous Membranes Moist - Neck Exam Neck exam: Positive for: Full Rom, Normal Inspection - Respiratory Exam Respiratory Exam: NORMAL BREATHING PATTERN. absent: Rhonchi, Wheezes, Respiratory Distress - Cardiovascular Exam Cardiovascular Exam: REGULAR RHYTHM, +S1, +S2 - GI/Abdominal Exam GI & Abdominal Exam: Soft. absent: Distended, Guarding, Rebound, Tenderness - Extremities Exam Extremities exam: Positive for: calf tenderness (on L medial side, mild, no erythema, tender.), full ROM, normal capillary refill, pedal pulses present. Negative for: joint swelling - Neurological Exam Neurological exam: Alert, Oriented x3 Results - Vital Signs Recent Vital Signs: Last Vital Signs Temp 98.3 F 03/18/18 19:19 Pulse 74 03/18/18 19:19 Resp 16 03/18/18 19:19 BP 192/97 H 03/18/18 19:19 Pulse Ox 97 03/18/18 22:38 - Labs Result Diagrams: 03/18/18 20:05 03/18/18 20:05 Labs: Laboratory Results - last 24 hr 03/18/18 03/18/18 03/18/18 20:05 20:05 20:05 WBC 8.5 RBC 4.74 Hgb 14.6 Hct 44.3 MCV 93.5 MCH 30.8 MCHC 33.0 RDW 12.9 Plt Count 191 MPV 8.5 Neut % (Auto) 47.5 L Lymph % (Auto) 40.9 H [place] % (Auto) 8.2 Eos % (Auto) 2.5 Baso % (Auto) 0.9 Neut # (Auto) 4.0 Lymph # (Auto) 3.5 [place] # (Auto) 0.7 Eos # (Auto) 0.2 Baso # (Auto) 0.1 PT 11.4 INR 1.0 APTT 34.0 Sodium 140 Potassium 4.1 Chloride 102 Carbon Dioxide 28 Anion Gap 14 BUN 17 Creatinine 0.8 Est GFR ( Amer) > 60 Est GFR (Non-Af Amer) > 60 Random Glucose 81 Calcium 9.4 Troponin I < 0.0120 NT-Pro-B Natriuret Pep 59.9 Assessment & Plan - Assessment and Plan (Free Text) Assessment: 57 y/o M with a PMHx of CAD, NSTEMI, HTN, HLD, current smoker, obesity and pre- diabetes is admitted for evaluation and management of pulmonary embolism. --D-Dimer: 451-high on 03/18/18. --CTA Lungs: Acute pulmonary embolism in right lower lobe pulmonary artery and multiple segmental right lower lobe arteries. There is also a small pulmonary embolism in left lower lobe segmental artery. Suggestion of small pulmonary embolism within the left upper lobe segmental artery. Small pulmonary emboli within the lingular pulmonary arteries as well. PLAN: >Pulmonary Embolism --Acute --Afebrile, asymptomatic --Lovenox 100mg administered at ED. (Therapeutic dose) --Attempted to order Eliquis. (As per pharmacy, specialist order is required) --Considering bridging to Coumadin if no Eliquis. --F/U AM labs --Ambulation encouraged. >HTN/Hx of NSTEMI --Home medications resumed --Echocardiogram on 10/08/15: Normal LV function, LVEF 60%. --BP elevated at presentation, ordered nightime dose of home med: Metoprolol 50mg. --Heart healthy diet. --F/U vital signs >HLD --Home meds resumed --Last lipid panel on 03/18/18: LDL 120-high, CHOL 178-wnl, HDL 34-low. >Pre-Diabetes --Pt started on Metformin 500mg BID this morning. --Healthy heart diet >Smoking History --Pt extensively educated and counseled on the cardiovascular complications from smoking such as IN, CVA, DVT and PE. --Pt reported understanding and would like start smoking cessation today. --Considering nicotine patch. Case discussed with Dr Yenny Goldstein PGY-2 - Date & Time Date: 03/18/18 Time: 23:00 <Yenny Oscar - Last Filed: 03/19/18 06:39> Results - Vital Signs Recent Vital Signs: Last Vital Signs Temp 97.9 F 03/19/18 05:52 Pulse 64 03/19/18 05:52 Resp 18 03/19/18 05:52 BP 127/76 03/19/18 05:52 Pulse Ox 95 03/19/18 05:52 - Labs Result Diagrams: 03/19/18 04:25 03/19/18 04:25 Labs: Laboratory Results - last 24 hr 03/18/18 03/18/18 03/18/18 20:05 20:05 20:05 WBC 8.5 RBC 4.74 Hgb 14.6 Hct 44.3 MCV 93.5 MCH 30.8 MCHC 33.0 RDW 12.9 Plt Count 191 MPV 8.5 Neut % (Auto) 47.5 L Lymph % (Auto) 40.9 H [place] % (Auto) 8.2 Eos % (Auto) 2.5 Baso % (Auto) 0.9 Neut # (Auto) 4.0 Lymph # (Auto) 3.5 [place] # (Auto) 0.7 Eos # (Auto) 0.2 Baso # (Auto) 0.1 PT 11.4 INR 1.0 APTT 34.0 Sodium 140 Potassium 4.1 Chloride 102 Carbon Dioxide 28 Anion Gap 14 BUN 17 Creatinine 0.8 Est GFR ( Amer) > 60 Est GFR (Non-Af Amer) > 60 Random Glucose 81 Calcium 9.4 Troponin I < 0.0120 NT-Pro-B Natriuret Pep 59.9 03/19/18 03/19/18 04:25 04:25 WBC 7.8 RBC 4.75 Hgb 14.8 Hct 44.4 MCV 93.4 MCH 31.2 H MCHC 33.4 RDW 13.2 Plt Count 188 MPV Neut % (Auto) Lymph % (Auto) [place] % (Auto) Eos % (Auto) Baso % (Auto) Neut # (Auto) Lymph # (Auto) [place] # (Auto) Eos # (Auto) Baso # (Auto) PT INR APTT Sodium 141 Potassium 4.1 Chloride 101 Carbon Dioxide 27 Anion Gap 17 BUN 17 Creatinine 0.8 Est GFR ( Amer) > 60 Est GFR (Non-Af Amer) > 60 Random Glucose 97 Calcium 9.7 Troponin I NT-Pro-B Natriuret Pep Attending/Attestation - Attestation I have personally seen and examined this patient.: Yes I have fully participated in the care of the patient.: Yes I have reviewed all pertinent clinical information: Yes Notes (Text): 03/19/18 06:39 agree with findings and plan as above.
[2018-03-19] MEDS ORDERED: Pneumococcal 23-Valent Vaccine IM ONE (01:27)
[2018-03-19 05:17] LABS: HEMOGLOBIN 14.8 g/dL (12.0-18.0); MEAN CELL VOLUME 93.4 fl (80.0-94.0); MEAN CORPUSCULAR HEMOGLOBIN 31.2 pg (27.0-31.0); MEAN CORPUSCULAR HGB CONC 33.4 g/dL (33.0-37.0); RBC 4.75 Mil/uL (4.40-5.90); RED CELL DISTRIBUTION WIDTH 13.2 % (11.5-14.5); WHITE BLOOD COUNT 7.8 K/uL (4.8-10.8)
[2018-03-19 05:35] LABS: BLOOD UREA NITROGEN 17 mg/dl (9-20); CALCIUM 9.7 mg/dL (8.4-10.2); GFR NON-AFRICAN AMERICAN > 60
[2018-03-19 09:07] VITALS: BP 127/76; PULSE 64
--- NOTE | 2018-03-19 09:18 | CP.PCM.DIS ---
Provider - Provider Date of Admission: 03/18/18 22:08 Attending physician: Yenny Oscar DO Consults: 03/19/18 01:27 Social Work Referral Routine Comment: smoker Physician Instructions: Reason For Exam: 1ppd smoker Time Spent in preparation of Discharge (in minutes): 30 Hospital Course - Lab Results Lab Results: Most Recent Lab Values WBC 7.8 K/uL (4.8-10.8) 03/19/18 04:25 RBC 4.75 Mil/uL (4.40-5.90) 03/19/18 04:25 Hgb 14.8 g/dL (12.0-18.0) 03/19/18 04:25 Hct 44.4 % (35.0-51.0) 03/19/18 04:25 MCV 93.4 fl (80.0-94.0) 03/19/18 04:25 MCH 31.2 pg (27.0-31.0) H 03/19/18 04:25 MCHC 33.4 g/dL (33.0-37.0) 03/19/18 04:25 RDW 13.2 % (11.5-14.5) 03/19/18 04:25 Plt Count 188 K/uL (130-400) 03/19/18 04:25 MPV 8.5 fl (7.2-11.7) 03/18/18 20:05 Neut % (Auto) 47.5 % (50.0-75.0) L 03/18/18 20:05 Lymph % (Auto) 40.9 % (20.0-40.0) H 03/18/18 20:05 [place] % (Auto) 8.2 % (0.0-10.0) 03/18/18 20:05 Eos % (Auto) 2.5 % (0.0-4.0) 03/18/18 20:05 Baso % (Auto) 0.9 % (0.0-2.0) 03/18/18 20:05 Neut # (Auto) 4.0 K/uL (1.8-7.0) 03/18/18 20:05 Lymph # (Auto) 3.5 K/uL (1.0-4.3) 03/18/18 20:05 [place] # (Auto) 0.7 K/uL (0.0-0.8) 03/18/18 20:05 Eos # (Auto) 0.2 K/uL (0.0-0.7) 03/18/18 20:05 Baso # (Auto) 0.1 K/uL (0.0-0.2) 03/18/18 20:05 PT 11.4 Seconds (9.8-13.1) 03/18/18 20:05 INR 1.0 03/18/18 20:05 APTT 34.0 Seconds (25.6-37.1) 03/18/18 20:05 Sodium 141 mmol/l (132-148) 03/19/18 04:25 Potassium 4.1 MMOL/L (3.6-5.0) 03/19/18 04:25 Chloride 101 mmol/L (98-107) 03/19/18 04:25 Carbon Dioxide 27 mmol/L (22-30) 03/19/18 04:25 Anion Gap 17 (10-20) 03/19/18 04:25 BUN 17 mg/dl (9-20) 03/19/18 04:25 Creatinine 0.8 mg/dl (0.8-1.5) 03/19/18 04:25 Est GFR ( Amer) > 60 03/19/18 04:25 Est GFR (Non-Af Amer) > 60 03/19/18 04:25 Random Glucose 97 mg/dL (75-110) 03/19/18 04:25 Calcium 9.7 mg/dL (8.4-10.2) 03/19/18 04:25 Troponin I < 0.0120 ng/mL (0.00-0.120) 03/18/18 20:05 NT-Pro-B Natriuret Pep 59.9 pg/ml (0-900) 03/18/18 20:05 - Hospital Course Hospital Course: 57 y/o M with a PMHx of CAD, NSTEMI, HTN, HLD, current smoker, obesity and pre- diabetes admitted for evaluation and management of pulmonary embolism after being found to have left lower leg swelling and pain. D-Dimer: 451-high on 03/18/18. CTA of Lungs was performed Acute pulmonary embolism in right lower lobe pulmonary artery and multiple segmental right lower lobe arteries. There is also a small pulmonary embolism in left lower lobe segmental artery. Suggestion of small pulmonary embolism within the left upper lobe segmental artery. Small pulmonary emboli within the lingular pulmonary arteries as well. Theraupetic lovenox 100mg was given last night in ED, followed by another dose this AM prior to discharge. Patient was given a script for Eliquis 10mg PO BID x 7 days ( with instructions to start tonight) followed by Eliquis 5mg PO BID x 21 days. 1. Pulmonary Embolism --Eliquis to begin tonight 10mg PO BID x 7 days followed by Eliquis 5mg PO BID x 21 days. --FU appointment at [facility] with Dr. Garcia 03/26/2018 at 940am. --CTA Lungs: Acute pulmonary embolism in right lower lobe pulmonary artery and multiple segmental right lower lobe arteries. There is also a small pulmonary embolism in left lower lobe segmental artery. Suggestion of small pulmonary embolism within the left upper lobe segmental artery. Small pulmonary emboli within the lingular pulmonary arteries as well. 2. HTN/Hx of NSTEMI --Continue Aspirin 81mg QQ. --Continue Atorvastatin 40mg PO QD. --Echocardiogram on 10/08/15: Normal LV function, LVEF 60%. --BP elevated at presentation, ordered nightime dose of home med: Metoprolol 50mg. --Heart healthy diet. --F/U vital signs 3. HLD --Continue Atorvastatin 40mg PO QD. --Last lipid panel on 03/18/18: LDL 120-high, CHOL 178-wnl, HDL 34-low. 4. Pre-Diabetes --Continue Metformin 500mg BID. -Continue healthy heart diet 5. Smoking History --Pt extensively educated and counseled on the cardiovascular complications from smoking such as [place], CVA, DVT and PE. --Nicotine patch 21mg QD x 6 weeks followed by 14mg QD x 2 weeks; then 7mg QD x 2 weeks. --Script sent for patch 21mg QD x 4 weeks; continue regimen. Discharge Exam - Head Exam Head Exam: ATRAUMATIC, NORMAL INSPECTION - Eye Exam Eye Exam: EOMI Pupil Exam: PERRL - ENT Exam ENT Exam: Mucous Membranes Moist - Respiratory Exam Respiratory Exam: NORMAL BREATHING PATTERN - Cardiovascular Exam Cardiovascular Exam: REGULAR RHYTHM, +S1, +S2 - GI/Abdominal Exam GI & Abdominal Exam: Normal Bowel Sounds, Soft. absent: Distended, Tenderness - Exam External exam: absent: Erythema, Swelling - Neurological Exam Neurological exam: Alert, Oriented x3 - Psychiatric Exam Psychiatric exam: Normal Affect, Normal Mood Discharge Plan - Discharge Medications Prescriptions: Apixaban [Eliquis] 5 mg PO BID 21 Days #42 tab.ds.pk Apixaban [Eliquis] 10 mg PO BID 7 Days #14 tab Aspirin [Adult Aspirin Regimen] 81 mg PO DAILY 30 Days #30 tablet.dr - Follow Up Plan Condition: FAIR Disposition: HOME/ ROUTINE Instructions: Pulmonary Embolism (Blood Clot in the Lungs) (DC) Additional Instructions: follow up at the [facility] on thursday03/26/18 9;40am Referrals: [facility] [place] [Outside]
--- NOTE | 2018-03-19 09:28 | CT ---
Date of service: 03/18/2018 PROCEDURE: CT Chest with contrast (Pulmonary Angiogram) HISTORY: chest pain COMPARISON: None available. TECHNIQUE: Axial computed tomography images were obtained of the chest in the pulmonary arterial phase of enhancement. Coronal and sagittal reformatted images were created and reviewed. Intravenous contrast dose: Visipaque 320, 95 cc Radiation dose: Total exam DLP = 352.89 mGy-cm. This CT exam was performed using one or more of the following dose reduction techniques: Automated exposure control, adjustment of the mA and/or kV according to patient size, and/or use of iterative reconstruction technique. FINDINGS: PULMONARY ARTERIES: Filling defects indicate thrombus within right middle and lower lobe medium size pulmonary artery branches and a few medium to small branches at the left upper and lower lobes. There is no saddle embolus in the main right and left pulmonary arteries appear widely patent and unremarkable. AORTA: Calcific atherosclerotic changes are seen related to the thoracic aorta. No thoracic aortic aneurysm identified. LUNGS: No suspicious mass identified bilaterally. No infiltrate. Bilateral, occasional scattered calcified granulomata are seen pinpoint in size. Central airways appear clear. Limited linear atelectasis or fibrosis seen at the bases of the lingula and right middle lobe. Scattered infrequent nonspecific ground-glass opacities are seen primarily at the bilateral upper lobes. Stable scar or possible subpleural nodule is unchanged at the lateral left hemidiaphragm dating back to at least prior chest and abdomen CT 10/06/2015. Stable benign 5 mm subpleural nodule seen the medial left upper lobe in image 28 series 5 as well. PLEURAL SPACES: Unremarkable. No effusion or pneumothorax. HEART: Upper limits normal cardiac size. Coronary calcifications are identified. LYMPH NODES: No lymphadenopathy. BONES, CHEST WALL: Unremarkable. No fracture or destructive lesion OTHER FINDINGS: None. IMPRESSION: 1. Small but scattered pulmonary emboli identified bilaterally, as discussed above. No consolidation identified bilaterally. 2. No significant lymphadenopathy. No pleural effusion bilaterally. Scattered bilateral limited ground-glass opacities are appreciated, primarily at the bilateral upper lobes-a nonspecific finding. 3. Stable benign subpleural nodule medial left upper lobe with additional small nodule or scar abutting left hemidiaphragm at the left base dating back at least to prior CT 10/06/2015. Concordant preliminary report from [facility], 03/18/2018 9:51 p.m.. Findings discussed with Dr. Mclain by Dr. Marquez at the time of the preliminary report.
--- NOTE | 2018-03-19 09:35 | CARD ---
APPROVED REPORT Date of service: 03/19/2018 EKG Measurement Heart [id number] <Conclusion> Normal sinus rhythm Nonspecific T wave abnormality Prolonged QT Abnormal ECG
[2018-03-19 10:18] VITALS: RESP 18; TEMP 97.9; O2SAT 95
[2018-03-19] MEDS ORDERED: Enoxaparin 100 mg Syringe SC SCH (11:00)
== END 2018-03-19 12:15 | disposition home or self-care (01) | DRG 134 ==
LOC: H.ER 19:06 → H.ERHOLD 22:08 → H.TEL 03-19 00:18
PROVIDERS: ADMIT Student in an Organized Health Care Education/Training Program; ATTEND Student in an Organized Health Care Education/Training Program
PROC: 3E0234Z Introduction of Serum, Toxoid and Vaccine into Muscle, Percutaneous Approach (ICD-10-PCS; principal; 2018-03-19)
DX: I26.99 Other pulmonary embolism without acute cor pulmonale (principal); I10 Essential (primary) hypertension; E78.5 Hyperlipidemia, unspecified; E78.00 Pure hypercholesterolemia, unspecified; F17.210 Nicotine dependence, cigarettes, uncomplicated; I25.10 Atherosclerotic heart disease of native coronary artery without angina pectoris; I25.2 Old myocardial infarction; Z79.02 Long term (current) use of antithrombotics/antiplatelets; Z79.84 Long term (current) use of oral hypoglycemic drugs; Z86.73 Personal history of transient ischemic attack (TIA), and cerebral infarction without residual deficits; R73.03 Prediabetes; Z23 Encounter for immunization; Z95.5 Presence of coronary angioplasty implant and graft